=== PATIENT | male | born 1950 | race Caucasian/White ===

== ENCOUNTER 2019-07-19 08:12 | Outpatient (CLI) | payer MEDICARE ==
--- NOTE | 2019-07-19 09:58 | ULT ---
US Renal Rt Unilateral HISTORY: Chronic renal disease, stage III. 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 FINDINGS: The right kidney measures 13 cm in length. No right-sided renal mass or hydronephrosis is s een. The patient is status post left nephrectomy. The bladder has a volume of 46 cc and empties completely on the post void image. IMPRESSION: No evidence of high-grade obstruction.
== END 2019-07-19 08:13 | disposition home or self-care (01) ==
LOC: NAV ULT 08:12
PROVIDERS: ATTEND Internal Medicine Nephrology
DX: N18.3 Chronic kidney disease, stage 3 (moderate) (principal)
CPT/HCPCS: 76775